=== PATIENT | male | born 1960 | race Caucasian/White ===

== ENCOUNTER 2024-01-31 12:21 | Emergency (ER) | payer SELFPAY ==
[~2024-01-31] VITALS: Ht 177.8 cm; Wt 79.8 kg
[2024-01-31 12:42] VITALS: BP 200/87; PULSE 74; RESP 18; TEMP 98.4; O2SAT 99
[2024-01-31 13:54] LABS: BASOPHILS % (AUTO) 0.3 % (0.0-2.0); EOSINOPHILS % (AUTO) 0.3 % (0.0-4.0); HEMATOCRIT 37.3 % (36-52); HEMOGLOBIN 13.2 g/dL (12.0-18.0); LYMPHOCYTES # (AUTO) 1.3 K/uL (2.0-11.5); LYMPHOCYTES % (AUTO) 24.9 % (20.5-51.1); MEAN CORPUSCULAR HEMOGLOBIN 30 pg (27-31); MEAN CORPUSCULAR HGB CONC 35 g/dL (33-37); MEAN CORPUSCULAR VOLUME 85.9 fL (80-94); MONOCYTES # (AUTO) 0.3 K/uL (0.8-1.0); MONOCYTES % (AUTO) 6.8 % (1.7-9.3); NEUTROPHILS # (AUTO) 3.5 K/uL (1.8-7.7); NEUTROPHILS % (AUTO) 67.7 % (42.2-75.2); PLATELET COUNT (AUTO) 235 K/uL (140-450); RED BLOOD CELL COUNT(AUTO) 4.34 MIL/uL (4.20-6.10); RED CELL DISTRIBUTION WIDTH 12.8 % (11.6-13.7); WHITE BLOOD COUNT (AUTO) 5.1 K/uL (4.8-10.8)
[2024-01-31 13:57] LABS: ANION GAP 10.3 (8-16); CALCIUM 8.9 mg/dL (8.5-10.1); CARBON DIOXIDE 30.9 mmol/L (21-32); CREATININE 1.2 mg/dL (0.6-1.3); POTASSIUM 4.2 mmol/L (3.5-5.1)
[2024-01-31] MEDS: NACL 0.9% 1,000 ML IV ONE ×2 (14:57→17:12)
[2024-01-31] MEDS: KETOROLAC 30 MG/ML VIAL IVP ONE (14:59)
[2024-01-31] MEDS: INSULIN REGULAR, HUMAN 100 UNIT/ML VIAL IVP ONE (17:14)
[2024-01-31] MEDS ORDERED: LISI5TAB18 PO (17:55)
[2024-01-31] MEDS ORDERED: NAPR-1704 PO (17:55)
[2024-01-31] MEDS ORDERED: METF-1139 PO (17:55)
[2024-01-31 18:54] VITALS: BP 198/86; PULSE 82; RESP 18; TEMP 98.4; O2SAT 99
== END 2024-01-31 18:55 | disposition home or self-care (01) ==
LOC: MED 12:21
DX: E11.9 Type 2 diabetes mellitus without complications (principal); I10 Essential (primary) hypertension; R51.9 Headache, unspecified; H57.12 Ocular pain, left eye; Z79.4 Long term (current) use of insulin; Z79.899 Other long term (current) drug therapy
CPT/HCPCS: 36415; 70450; 71045; 80048; 82948; 83880; 84484; 85025; 93005; 96361; 96374; 96375; 99285; J1815; J1885; J7030